=== PATIENT | male | born 1985 | race Caucasian/White ===

== ENCOUNTER → 2017-04-11 08:02 | Outpatient (CLI) | payer OTHER, SELFPAY ==
--- NOTE | 2017-04-11 08:05 | MR_ITS ---
MR wrist LT wo con HISTORY: Left lateral wrist pain ORDERING PHYSICIAN: Jordi Kruger MD PATIENT AGE: 32 years COMPARISON: Radiograph of 05/22/2016 FINDINGS: No bony or joint abnormalities are evident. No fracture or dislocation. No evidence of avascular necrosis. The triangular fibrocartilage has an unremarkable appearance. No soft tissue mass is apparent. The joint spaces are well-preserved with no obvious joint effusion. IMPRESSION: Negative MRI of the left wrist
== END ==
PROVIDERS: Family Provider Internal Medicine Adolescent Medicine; PCP Internal Medicine Adolescent Medicine; Visit Provider Orthopaedic Surgery
DX: S63.502A Unspecified sprain of left wrist, initial encounter (principal)
CPT/HCPCS: 73221

== ENCOUNTER → 2017-07-18 15:32 | Outpatient (CLI) | payer OTHER, SELFPAY ==
[2017-07-18 16:10] LABS: Basophils # 0.1 K/mm3 (0-0.2); Basophils % 0.8 % (0.1-2.0); Eosinophils # 0.2 K/mm3 (0.0-0.4); Eosinophils % 2.2 % (0.1-12.0); Hematocrit 47.4 % (42.0-52.0); Hemoglobin 15.4 g/dL (14.1-18.0); Lymphocytes # 3.2 K/mm3 (0.7-4.5); Lymphocytes % 38.5 K/mm3 (10-50); Mean Corpuscular HGB Conc 32.5 g/dL (31.8-35.4); Mean Corpuscular Hemoglobin 29.3 pg (27.0-31.2); Mean Corpuscular Volume 90.2 fl (80-94); Mean Platelet Volume 8.4 fl (7.4-10.4); Monocytes # 0.6 K/mm3 (0.1-1.0); Monocytes % 6.8 % (1.7-9.3); Neutrophils # 4.3 K/mm3 (1.8-7.8); Neutrophils % 51.6 % (37.0-80.0); Platelet Count 246 K/mm3 (142-424); Red Blood Count 5.26 M/mm3 (4.60-6.20); Red Cell Distribution Width 13.3 % (11.5-17.5); White Blood Count 8.4 K/mm3 (4.8-10.8)
[2017-07-18 17:47] LABS: Alanine Aminotransferase 104 U/L (12-78); Albumin Level 3.8 gm/dL (3.4-5.0); Albumin/Globulin Ratio 1.1 (1.1-1.8); Alkaline Phosphatase 111 U/L (46-116); Anion Gap 11.3 mEq/L (5-15); Aspartate Amino Transferase 26 U/L (15-37); Bilirubin,Total 0.2 mg/dL (0.2-1.0); Blood Urea Nitrogen 13 mg/dL (7-18); Calcium 9.3 mg/dL (8.5-10.1); Carbon Dioxide 30 mmol/L (21.0-32.0); Chloride 103 mmol/L (98-107); Cholesterol 197 mg/dL (140-200); Creatinine,Serum 0.89 mg/dL (0.70-1.30); Estimated Glomerular Filt Rate 98 ml/min (>60); GFR (African American) 118 ML/MIN (>60); Globulin 3.4 gm/dl (1.3-3.2); Glucose 105 mg/dL (74-106); HDL Cholesterol 22 mg/dL (27-67); LDL Cholesterol 126 mg/dL (0-130); Potassium 4.3 mmoL/L (3.5-5.1); Sodium 140 mmol/L (136-145); Total Protein,Serum 7.2 gm/dL (6.4-8.2); Triglycerides 247 mg/dL (30-200); VLDL Cholesterol 49 mg/dL (0-40)
[2017-07-20 19:35] LABS: Vitamin B12 536 pg/mL (232-1245); Vitamin D 25 Hydroxy 27.4 ng/mL (30.0-100.0)
[2017-07-21 15:09] LABS: Hep A Ab, IgM Negative (Negative); Hepatitis B Core Antibody IgM Negative (Negative); Hepatitis B Surface Antigen Negative (Negative)
[2017-07-21 20:18] LABS: Hepatitis C Antibody 0.1 s/co ratio (0.0-0.9)
== END ==
PROVIDERS: Visit Provider Nurse Practitioner Family
DX: Z00.00 Encounter for general adult medical examination without abnormal findings (principal); R20.2 Paresthesia of skin; R74.8 Abnormal levels of other serum enzymes
CPT/HCPCS: 36415; 80053; 80061; 80074; 82607; 82652; 84443; 85025

== ENCOUNTER → 2017-08-01 08:37 | Outpatient (CLI) | payer OTHER, SELFPAY ==
--- NOTE | 2017-08-01 08:45 | US_ITS ---
US abdomen limited History:Elevated liver enzymes Ordering Physician:Abimael Zamora MD Patient Age: 32 years Comparison:None Findings: Pancreas:Unremarkable. No obvious mass or abnormal fluid collection. No ductal dilatation Liver:No focal liver lesions demonstrated. Homogeneous echogenicity. No intrahepatic biliary ductal dilatation evident Right Kidney:Unremarkable. Normal size and echogenicity. No hydronephrosis Gallbladder:No gallstones, gallbladder wall thickening, pericholecystic fluid, or biliary dilatation. Impression:Negative gallbladder/right upper quadrant ultrasound
== END ==
PROVIDERS: Family Provider Internal Medicine Adolescent Medicine; PCP Internal Medicine Adolescent Medicine; Visit Provider Internal Medicine Adolescent Medicine
DX: R74.8 Abnormal levels of other serum enzymes (principal)
CPT/HCPCS: 76705

== ENCOUNTER 2017-09-18 15:00 | Outpatient (RCR) | payer OTHER, SELFPAY | END 2017-09-18 15:01 | disposition home or self-care (01) | LOC: OT 15:00 | PROVIDERS: Family Provider Internal Medicine Adolescent Medicine; PCP Internal Medicine Adolescent Medicine; Visit Provider Orthopaedic Surgery | DX: S63.392D Traumatic rupture of other ligament of left wrist, subsequent encounter (principal) | CPT/HCPCS: 97035; 97110; 97140; 97166 ==

== ENCOUNTER → 2018-04-18 13:46 | Outpatient (CLI) | payer OTHER, SELFPAY ==
--- NOTE | 2018-04-18 13:53 | XR_ITS ---
XR elbow RT min 3V HISTORY: ITS.REASON: RT ELBOW PAIN ORDERING PHYSICIAN: Balbina Braun PATIENT AGE: 33 years COMPARISON: None FINDINGS: BONY STRUCTURES: No fracture or dislocation. No lytic or blastic change. Normal mineralization. SOFT TISSUES: Unremarkable. No radio opaque foreign bodies. No displaced fat pad. JOINT SPACE: Well-preserved. No significant arthritic changes evident. IMPRESSION: Negative elbow.
== END ==
PROVIDERS: PCP Family Medicine; Visit Provider Nurse Practitioner Family
DX: M25.521 Pain in right elbow (principal)
CPT/HCPCS: 73080

== ENCOUNTER → 2020-05-24 08:43 | Outpatient (CLI) | payer OTHER, SELFPAY ==
--- NOTE | 2020-05-24 08:54 | XR_ITS ---
PROCEDURE: XR FOOT WT BEARING LT 3V CLINICAL INDICATION: pain COMPARISON: No exams were available for comparison FINDINGS: No fracture or dislocation. No lytic or blastic change. There is normal mineralization. The joint spaces are well-preserved. No significant degenerative/arthritic changes. No erosive changes evident. Other findings:Pes planus is noted. IMPRESSION: Pes planus. Otherwise unremarkable study. Dictated by: Eri Antony 05/24/2020 11:24 Eri Antony in [place] 05/24/2020 11:24
--- NOTE | 2020-05-24 08:54 | XR_ITS ---
PROCEDURE: XR FOOT WT BEARING RT 3V CLINICAL INDICATION: pain COMPARISON: No exams were available for comparison FINDINGS: No fracture or dislocation. No lytic or blastic change. There is normal mineralization. The joint spaces are well-preserved. No significant degenerative/arthritic changes. No erosive changes evident. Other findings:Pes planus is noted. IMPRESSION: Mild pes planus. Otherwise unremarkable. Dictated by: Eri Antony 05/24/2020 09:17 Eri Antony in [place] 05/24/2020 09:17
== END ==
PROVIDERS: PCP Internal Medicine Adolescent Medicine; Visit Provider Nurse Practitioner
DX: M79.672 Pain in left foot (principal); M79.671 Pain in right foot
CPT/HCPCS: 73630

== ENCOUNTER → 2022-02-07 08:19 | Outpatient (CLI) | payer SELFPAY | PROVIDERS: PCP Internal Medicine Adolescent Medicine; Visit Provider Nurse Practitioner Family | DX: Z02.4 Encounter for examination for driving license (principal) ==